=== PATIENT | male | born 1970 | race Caucasian/White ===

== ENCOUNTER 2016-12-09 18:39 | Emergency (ER) | payer BC, OTHER ==
[~2016-12-09] VITALS: Ht 180.3 cm; Wt 77.1 kg
[~2016-12-09 18:39] MED LIST: ALB.5NB20; ALBU17AE3 INH; ALBU8.5H2 IH; ALBU8.5H4 IH; AZIT-21 PO; AZIT250T PO; BUSP10TA95 PO; CEFU250T PO; CHLO10CA6 PO; CIPR500S2 PO; CLN.1T PO; ESCI10TA PO; FNT100TD; FNT100TD TD; HYDR-2890 PO; HYDR-3720 PO; KCL20TCR PO; MTH10T PO; OMEP20TA7 PO; OMEP40CA36 PO; ONDAN4ODT PO; PNT40TEC PO; PRD20T PO; PRED10TA PO; PRM25T PO; RT-ALBUINH IH; TRAM-42 PO; TRAM50TA2 PO
[2016-12-09 19:12] LABS: BASOPHILS % (AUTO) 1 % (0-10); EOSINOPHILS # (AUTO) 0.3 10^3/uL (0.0-0.3); EOSINOPHILS % (AUTO) 5 % (0-10); LYMPHOCYTES # (AUTO) 2.4 X 10^3 (1.0-4.0); LYMPHOCYTES % (AUTO) 43 % (12-44); MEAN CORPUSCULAR HEMOGLOBIN 29 PG (25-34); MEAN CORPUSCULAR HGB CONC 35 G/DL (32-36); MEAN CORPUSCULAR VOLUME 85 FL (80-99); MEAN PLATELET VOLUME 9.7 FL (7.4-10.4); MONOCYTES # (AUTO) 0.5 X 10^3 (0.0-1.0); MONOCYTES % (AUTO) 8 % (0-12); NEUTROPHILS # (AUTO) 2.4 X 10^3 (1.8-7.8); NEUTROPHILS % (AUTO) 43 % (42-75); PLATELET COUNT 215 10^3/uL (130-400); RED BLOOD COUNT 4.48 10^6/uL (4.35-5.85); RED CELL DISTRIBUTION WIDTH 13.1 % (10.0-14.5); WHITE BLOOD COUNT 5.5 10^3/uL (4.3-11.0)
--- NOTE | 2016-12-09 19:17 | ED General ---
General Chief Complaint: Cardiac/General Problems Stated Complaint: HIGH BP Nursing Triage Note: c/o left ankle swelling, high blood pressure Nursing Sepsis Screen: No Definite Risk Source of Information: Patient, Spouse Exam Limitations: No Limitations History of Present Illness Time Seen by Provider: 18:55 Initial Comments 46-year-old male patient presents to the emergency department complains of left distal leg/ankle swelling. Also reports elevated blood pressure at home. States he is at his mothers house, and mother made him concerned about possible blood clot. Patient was weed eating and using a chainsaw all day yesterday. Denies drinking much water yesterday. Today he noticed increased swelling, redness, and warmth to the distal left lower extremity. Denies shortness of air , chest pain, dizziness. Yesterday did have a mild tingling to the left hand in the evening. This is resolved completely. Denies headache, slurred speech, changes in vision, facial drooping, one-sided weakness. Denies history of blood clots. Denies claudication or calf pain. Location Injury Occurred: denies known injury Timing/Duration: 12 Hours, Constant Allergies and Home Medications Allergies Coded Allergies: No Known Drug Allergies (Unverified , 09/21/15) Home Medications Albuterol Sulfate 8.5 Gm Hfa.aer.ad, 1-2 PUFF IH Q4H PRN for SHORTNESS OF BREATH , (Reported) Buspirone HCl 10 Mg Tablet, 10 MG PO BID, (Reported) Escitalopram Oxalate Unknown Strength Tablet, 10 MG PO DAILY, (Reported) Omeprazole 40 Mg Capsule.dr, 40 MG PO BID, (Reported) Sulfamethoxazole/Trimethoprim 1 Each Tablet, 1 EACH PO BID, #20 Ref 0 Prescribed by: MANJIT FERRARI on 12/09/162103 Constitutional: No chills, No diaphoresis, No dizziness, No fever, No malaise Respiratory: No cough, No dyspnea on exertion, No orthopnea, No short of breath Cardiovascular: see HPI, No chest pain, edema, No syncope Gastrointestinal: no symptoms reported Genitourinary: no symptoms reported Musculoskeletal: see HPI, No joint pain, No muscle pain, No muscle stiffness, No muscle cramps, other (LLE swelling) Skin: see HPI Psychiatric/Neurological: No Symptoms Reported All Other Systems Reviewed Negative Unless Noted: Yes (Negative excepted noted.) Past Nylycpj-Dsosaq-Qcfald Hx Patient Social History Alcohol Use: Denies Use Recreational Drug Use: No Smoking Status: Never a Smoker 2nd Hand Smoke Exposure: No Recent Foreign Travel: No Contact w/Someone Who Travel: No Recent Infectious Disease Expo: No Recent Hopitalizations: No Immunizations Up To Date Tetanus Booster (TDap): Unknown Date of Influenza Vaccine: Apr 17, 2012 Seasonal Allergies Seasonal Allergies: No Surgeries HX Surgeries: No Respiratory Hx Respiratory Disorders: Yes (ASTHMA) Respiratory Disorders: Asthma Cardiovascular Hx Cardiac Disorders: No Neurological Hx Neurological Disorders: No Reproductive System Hx Reproductive Disorders: No Genitourinary Hx Genitourinary Disorders: No Gastrointestinal Hx Gastrointestinal Disorders: No Musculoskeletal Hx Musculoskeletal Disorders: Yes (DJD) Endocrine Hx Endocrine Disorders: No HEENT HX ENT Disorders: No Cancer Hx Cancer: No Psychosocial Hx Psychiatric Problems: No Behavioral Health Disorders: Anxiety, Depression Integumentary HX Skin/Integumentary Disorder: No Blood Transfusions Hx Blood Disorders: No Adverse Reaction to a Blood Tr: No Reviewed Nursing Assessment Reviewed/Agree w Nursing PMH: Yes Family Medical History Significant Family History: No Pertinent Family Hx Physical Exam Vital Signs Vital Sign - Last 12Hours 12/09/16 18:50 Temp 97.7 Pulse 72 Resp 18 B/P (MAP) 153/92 Pulse Ox 99 O2 Delivery Room Air Capillary Refill : Less Than 3 Seconds General Appearance: No Apparent Distress, WD/WN HEENT: PERRL/EOMI, Pharynx Normal Neck: Normal Inspection, Supple Respiratory: Lungs Clear, Normal Breath Sounds, No Respiratory Distress Cardiovascular: Regular Rate, Rhythm, No Murmur, Normal Peripheral Pulses Gastrointestinal: Normal Bowel Sounds, No Organomegaly, Non Tender, Soft, No Distended Extremity: Normal Capillary Refill, Normal Range of Motion, Non Tender, No Calf Tenderness, Pedal Edema (trace RLE pedal edema. 2+ pedal edema to the level of the tibial tuberosity of the LLE. mild warmth and erythema noted of the left lower distal leg. Negative tenderness noted. Several small abrasions noted on the left distal lower extremity.) Neurologic/Psychiatric: Alert, Oriented x3, No Motor/Sensory Deficits, Normal Mood/Affect, traffic control technician II-XII Norm as Tested Skin: Normal Color, Warm/Dry, Erythema (mild warmth and erythema noted of the lower left distal leg. Negative tenderness noted. Several small abrasions noted on the left distal lower extremity.) Progress/Results/Core Measures Results/Orders Lab Results Laboratory Tests Test 12/09/16 19:05 Range/Units White Blood Count 5.5 4.3-11.0 10^3/uL Red Blood Count 4.48 4.35-5.85 10^6/uL Hemoglobin 13.1 L 13.3-17.7 G/DL Hematocrit 38 L 40-54 % Mean Corpuscular Volume 85 80-99 FL Mean Corpuscular Hemoglobin 29 25-34 PG Mean Corpuscular Hemoglobin Concent 35 32-36 G/DL Red Cell Distribution Width 13.1 10.0-14.5 % Platelet Count 215 130-400 10^3/uL Mean Platelet Volume 9.7 7.4-10.4 FL Neutrophils (%) (Auto) 43 42-75 % Lymphocytes (%) (Auto) 43 12-44 % Monocytes (%) (Auto) 8 0-12 % Eosinophils (%) (Auto) 5 0-10 % Basophils (%) (Auto) 1 0-10 % Neutrophils # (Auto) 2.4 1.8-7.8 X 10^3 Lymphocytes # (Auto) 2.4 1.0-4.0 X 10^3 Monocytes # (Auto) 0.5 0.0-1.0 X 10^3 Eosinophils # (Auto) 0.3 0.0-0.3 10^3/uL Basophils # (Auto) 0.0 0.0-0.1 10^3/uL Erythrocyte Sedimentation Rate 9 0-15 MM/HR Prothrombin Time 13.2 12.2-14.7 SEC INR Comment 1.0 0.8-1.4 Activated Partial Thromboplast Time 29 24-35 SEC D-Dimer 0.28 0.00-0.49 UG/ML Sodium Level 140 135-145 MMOL/L Potassium Level 3.6 3.6-5.0 MMOL/L Chloride Level 106 98-107 MMOL/L Carbon Dioxide Level 25 21-32 MMOL/L Anion Gap 9 5-14 MMOL/L Blood Urea Nitrogen 10 7-18 MG/DL Creatinine 0.84 0.60-1.30 MG/DL Estimat Glomerular Filtration Rate > 60 BUN/Creatinine Ratio 12 0-20 Glucose Level 97 70-105 MG/DL Calcium Level 9.0 8.5-10.1 MG/DL Total Bilirubin 0.5 0.1-1.0 MG/DL Aspartate Amino Transf (AST/SGOT) 31 5-34 U/L Alanine Aminotransferase (ALT/SGPT) 39 0-55 U/L Alkaline Phosphatase 65 40-136 U/L Total Creatine Kinase 331 H 30-200 U/L Troponin I < 0.30 <0.30 NG/ML C-Reactive Protein High Sensitivity 0.55 H 0.00-0.50 MG/DL B-Type Natriuretic Peptide 58.3 <100.0 PG/ML Total Protein 6.8 6.4-8.2 GM/DL Albumin 4.0 3.2-4.5 GM/DL TSH [place] [facility] 1.60 0.35-4.94 UIU/ML My Orders Orders - MANJIT FERRARI BNP (12/09/16 18:57) Cbc With Automated Diff (12/09/16 18:57) Comprehensive Metabolic Panel (12/09/16 18:57) Creatine Kinase (12/09/16 18:57) Hs C Reactive Protein (12/09/16 18:57) Fibrin Degradation Products (12/09/16 18:57) Protime With Inr (12/09/16 18:57) Partial Thromboplastin Time (12/09/16 18:57) Thyroid Analyzer (12/09/16 18:57) Troponin I (12/09/16 18:57) Erythrocyte Sedimentation Rate (12/09/16 18:57) Saline Lock/Iv-Start (12/09/16 18:57) Ekg Tracing (12/09/16 18:57) Us Venous Lower Ext Lt (12/09/16 18:57) Ns Iv 1000 Ml (Sodium Chloride 0.9%) (12/09/16 19:51) Rx-Trimeth/Sulfameth Ds Tab (Rx-Bactrim/ (12/09/16 21:03) Medications Given in ED Current Medications Medications Dose Ordered Sig/Dimitry Route Start Time Stop Time Status Last Admin Dose Admin Sodium Chloride 1,000 ml @ 0 mls/hr Q0M ONCE IV 12/09/16 19:51 12/09/16 19:52 DC 12/09/16 20:16 0 MLS/HR Vital Signs/I&O Vital Sign - Last 12Hours 12/09/16 12/09/16 18:50 21:09 Temp 97.7 Pulse 72 54 Resp 18 18 B/P (MAP) 153/92 Pulse Ox 99 98 O2 Delivery Room Air Blood Pressure Mean: 112 ECG Initial ECG Impression Date: Dec 09, 2016 Initial ECG Impression Time: 19:15 Initial ECG Rate: 68 Initial ECG Rhythm: Normal Sinus Initial ECG Comparisson: Unchanged Comment Sinus rhythm. Similar to previous ECG. No STEMI or arrhythmia noted. ECG reviewed with Dr. Saldaña. Diagnostic Imaging Diagonstic Imaging: Ultrasound Plain Films/CT/US/NM/MRI: leg Comments FINDINGS: The visualized deep and superficial venous system is patent. There is no mass or DVT. IMPRESSION: Negative left lower extremity venous Doppler. Dictated on workstation # [id number] Reviewed: Reviewed by Me (radiology report reviewed by me) Departure Communication Progress Notes Laboratory and diagnostic findings discussed with the patient. Plan for discharge to home with Bactrim for mild erythema and warmth of the left lower extremity. Impression Impression: Primary Impression: Left leg swelling Additional Impression: Abrasion of left lower extremity Qualified Codes: S80.812A - Abrasion, left lower leg, initial encounter Disposition: HOME, SELF-CARE Condition: Improved Departure-Patient Inst. Decision time for Depature: 20:50 Referrals: NO,LOCAL PHYSICIAN (PCP/Family) Primary Care Physician Patient Instructions: Cellulitis (Skin Infection), Adult (DC), Dependent Edema (DC), Swelling Add. Discharge Instructions: All discharge instructions reviewed with patient and/or family. Voiced understanding. Medications as instructed. Elevate the left lower extremity above the level of heart on pillows as much as possible for the next 2-3 days. Tylenol Extra Strength [id number] as directed for pain. Ibuprofen 800 mg by mouth every 8 hours as needed for pain. Ice packs or warm packs as needed for symptoms. Follow-up with a family practitioner Monday or Monday for recheck, call first thing Monday morning for appointment time. Return to the emergency department for worsened pain, swelling, redness, fever, drainage, headache, dizziness, changes in vision, slurred speech, shortness of air, chest pain, numbness, weakness, discoloration, or any other concerns. 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
[2016-12-09 19:22] LABS: PROTHROMBIN TIME PATIENT 13.2 SEC (12.2-14.7)
[2016-12-09 19:30] LABS: ERYTHROCYTE SEDIMENTATION RATE 9 MM/HR (0-15)
[2016-12-09 19:33] LABS: ALANINE AMINOTRANSFERASE 39 U/L (0-55); ANION GAP 9 MMOL/L (5-14); ASPARTATE AMINO TRANSFERASE 31 U/L (5-34); BILIRUBIN,TOTAL 0.5 MG/DL (0.1-1.0); BLOOD UREA NITROGEN 10 MG/DL (7-18); BUN/CREATININE RATIO 12 (0-20); CARBON DIOXIDE 25 MMOL/L (21-32); CHLORIDE 106 MMOL/L (98-107); CREATINE KINASE 331 U/L (30-200); CREATININE SERUM 0.84 MG/DL (0.60-1.30); GFR ESTIMATED > 60; GLUCOSE 97 MG/DL (70-105); HEMOLYSIS 8 (-100-29); ICTERUS 0.4 (-100-1.9); LIPEMIA 3 (-100-49); POTASSIUM 3.6 MMOL/L (3.6-5.0); SODIUM 140 MMOL/L (135-145); TOTAL PROTEIN 6.8 GM/DL (6.4-8.2); hs C REACTIVE PROTEIN 0.55 MG/DL (0.00-0.50)
[2016-12-09] MEDS ORDERED: NS IV 1000 ML 1,000 ML IV ONE (19:51)
[2016-12-09 19:52] LABS: TROPONIN I < 0.30 NG/ML (<0.30)
--- NOTE | 2016-12-09 20:39 | Diagnostic Imaging Report ---
PROCEDURE: US left lower extremity venous. TECHNIQUE: Multiple real-time grayscale images were obtained over the left lower extremity in various projections. Additional duplex Doppler and color Doppler images were also obtained. INDICATION: Left lower extremity swelling and pain. COMPARISON: None. FINDINGS: The visualized deep and superficial venous system is patent. There is no mass or DVT. IMPRESSION: Negative left lower extremity venous Doppler. Dictated by: Dictated on workstation # [id number]
[2016-12-09] MEDS ORDERED: RX-TRIMETH/SULFA. 160-800 MG (BACTRIM DS) TAB PPK#2 PO STA (21:03)
[2016-12-09] MEDS ORDERED: SULF1TAB35 PO (21:04)
[2016-12-09 21:09] VITALS: BP 123/81
--- OUTSIDE RECORDS SUMMARY | 2016-12-12 15:34 | XMS REPORT | Continuity of Care Document ---
Author Author [facility] Address Unknown Phone Unavailable Allergies Active Description Code Type Severity Reaction Onset Reported/Identified Relationship to Patient Clinical Status Yes NKANo Known Allergies NKA Miscellaneous Allergy Mild N/A 01/16/2009 Yes codeine [id number] Drug Allergy Mild N/A 04/11/2009 Yes No Known Drug Allergies [id number] Drug Allergy Unknown N/ A 09/21/2015 Medications Problems Date Dx Coded Attending Type Code Diagnosis Diagnosed By 10/13/2009 Ot 388.70 10/13/2009 Ot 719.07 01/13/2010 ROULA CHAMORRO MD 461.0 ACUTE MAXILLARY SINUSITIS 01/13/2010 ROULA CHAMORRO MD 564.00 CONSTIPATION, UNSPECIFIED 01/13/2010 ROULA CHAMORRO MD 719.44 PAIN IN JOINT, HAND 01/13/2010 ROULA CHAMORRO MD 786.2 COUGH 03/23/2010 Ot 304.01 03/23/2010 Ot 493.90 04/01/2010 ROULA CHAMORRO MD 304.00 OPIOID TYPE DEPENDENCE UNSPECIFIED USE 04/01/2010 ROULA CHAMORRO MD 716.90 ARTHRITIS/ ARTHROPATHY, UNSPECIFIED 06/01/2010 ROULA CHAMORRO MD 009.1 GASTROENTERITIS INFECT 06/25/2010 ROULA CHAMORRO MD 311 DEPRESSIVE DISORDER NOT ELSEWHERE CLASSIFIED 09/07/2010 ROULA CHAMORRO MD 719.46 PAIN IN JOINT INVOLVING LOWER LEG 09/07/2010 ROULA CHAMORRO MD 729.2 NEURALGIA NEURITIS AND RADICULITIS UNSPECIFIED 04/16/2011 Ot 305.90 09/15/2012 ROULA CHAMORRO MD 790.5 OTHER NONSPECIFIC ABNORMAL SERUM ENZYME LEVELS 09/15/2012 Ot 305.90 09/15/2012 Ot 558.9 09/15/2012 Ot 577.9 09/15/2012 Ot 780.93 07/10/2014 JOSE SWANSON AUTO DETAILER Ot 490 07/10/2014 JOSE SWANSON AUTO DETAILER Ot 786.2 08/03/2014 ADAN MCFARLANE, NAHID Mcwilliams Ot 276.52 08/03/2014 ADAN MCFARLANE, NAHID T Ot 493.92 08/03/2014 ADAN MCFARLANE, NAHID T Ot 799.02 08/03/2014 ADAN MCFARLANE, NAHID T Ot 965.09 08/03/2014 ADAN MCFARLANE, NAHID T Ot E849.0 08/03/2014 ADAN MCFARLANE, NAHID T Ot E850.2 09/21/2015 Ot K21.9 GASTRO-ESOPHAGEAL REFLUX DISEASE WITHOUT 09/21/2015 Ot Z01.818 ENCOUNTER FOR OTHER PREPROCEDURAL EXAMIN 09/22/2015 Ot K21.9 09/22/2015 Ot Z01.818 09/23/2015 Ot M25.552 09/23/2015 Ot M54.5 09/23/2015 Ot M25.552 09/23/2015 Ot M54.5 09/23/2015 Ot M25.552 09/23/2015 Ot M54.5 09/25/2015 CEM MCFARLANE, GINO Ot Z01.818 ENCOUNTER FOR OTHER PREPROCEDURAL EXAMIN 09/27/2015 Ot M25.552 09/27/2015 Ot M54.5 09/28/2015 GINO PRIEST MD Ot Z01.818 10/03/2015 Ot K21.9 GASTRO-ESOPHAGEAL REFLUX DISEASE WITHOUT 10/03/2015 Ot Z01.818 ENCOUNTER FOR OTHER PREPROCEDURAL EXAMIN 10/07/2015 Ot M25.552 PAIN IN LEFT HIP 10/07/2015 Ot M54.5 LOW BACK PAIN 06/30/2016 Ot M25.552 PAIN IN LEFT HIP 06/30/2016 Ot M54.5 LOW BACK PAIN 12/09/2016 Ot M25.552 PAIN IN LEFT HIP 12/09/2016 Ot M54.5 LOW BACK PAIN Procedures Results Test Result Range Complete blood count (CBC) with automated white blood cell (WBC) differential - 12/09/16 19:05 Blood leukocytes automated count (number/volume) 5.5 10*3/ uL 4.3-11.0 Blood erythrocytes automated count (number/volume) 4.48 10*6 /uL 4.35-5.85 Venous blood hemoglobin measurement (mass/volume) 13.1 g/dL 13.3-17.7 Blood hematocrit (volume fraction) 38 % 40-54 Automated erythrocyte mean corpuscular volume 85 [foz_us] 80-99 Automated erythrocyte mean corpuscular hemoglobin (mass per erythrocyte) 29 pg 25-34 Automated erythrocyte mean corpuscular hemoglobin concentration measurement ( mass/volume) 35 g/dL 32-36 Automated erythrocyte distribution width ratio 13.1 % 10.0-14.5 Automated blood platelet count (count/volume) 215 10*3/uL 130-400 Automated blood platelet mean volume measurement 9.7 [foz_us ] 7.4-10.4 Automated blood neutrophils/100 leukocytes 43 % 42-75 Automated blood lymphocytes/100 leukocytes 43 % 12-44 Blood monocytes/100 leukocytes 8 % 0-12 Automated blood eosinophils/100 leukocytes 5 % 0-10 Automated blood basophils/100 leukocytes 1 % 0-10 Blood neutrophils automated count (number/volume) 2.4 10*3 1.8-7.8 Blood lymphocytes automated count (number/volume) 2.4 10*3 1.0-4.0 Blood monocytes automated count (number/volume) 0.5 10*3 0.0-1.0 Automated eosinophil count 0.3 10*3/uL 0.0-0.3 Automated blood basophil count (count/volume) 0.0 10*3/uL 0.0-0.1 Erythrocyte sedimentation rate by westergren method - 12/09/16 19:05 Erythrocyte sedimentation rate by westergren method 9 mm 0-15 PT panel in platelet poor plasma by coagulation assay - 12/09/16 19:05 Prothrombin time (PT) in platelet poor plasma by coagulation assay 13.2 s 12.2-14.7 INR in platelet poor plasma or blood by coagulation assay 1.0 0.8-1.4 Activated partial thromboplastin time (aPTT) in platelet poor plasma bycoagulation assay - 12/09/16 19:05 Activated partial thromboplastin time (aPTT) in platelet poor plasma bycoagulation assay 29 s 24-35 Fibrin D-dimer FEU measurement in platelet poor plasma (mass/volume) - 19:05 Fibrin D-dimer FEU measurement in platelet poor plasma (mass/volume) 0.28 ug/mL 0.00-0.49 Comprehensive metabolic panel - 12/09/16 19:05 Serum or plasma sodium measurement (moles/volume) 140 mmol/ L 135-145 Serum or plasma potassium measurement (moles/volume) 3.6 mmol/L 3.6-5.0 Serum or plasma chloride measurement (moles/volume) 106 mmol /L 98-107 Carbon dioxide 25 mmol/L 21-32 Serum or plasma anion gap determination (moles/volume) 9 mmol/L 5-14 Serum or plasma urea nitrogen measurement (mass/volume) 10 mg/dL 7-18 Serum or plasma creatinine measurement (mass/volume) 0.84 mg /dL 0.60-1.30 Serum or plasma urea nitrogen/creatinine mass ratio 12 0-20 Serum or plasma creatinine measurement with calculation of estimated glomerular filtration rate > NRG Serum or plasma glucose measurement (mass/volume) 97 mg/dL 70-105 Serum or plasma calcium measurement (mass/volume) 9.0 mg/dL 8.5-10.1 Serum or plasma total bilirubin measurement (mass/volume) 0.5 mg/dL 0.1-1.0 Serum or plasma alkaline phosphatase measurement (enzymatic activity/volume) 65 U/L 40-136 Serum or plasma aspartate aminotransferase measurement (enzymatic activity/ volume) 31 U/L 5-34 Serum or plasma alanine aminotransferase measurement (enzymatic activity/volume ) 39 U/L 0-55 Serum or plasma protein measurement (mass/volume) 6.8 g/dL 6.4-8.2 Serum or plasma albumin measurement (mass/volume) 4.0 g/dL 3.2-4.5 Serum or plasma creatine kinase measurement (enzymatic activity/volume) - 12/09 19:05 Serum or plasma creatine kinase measurement (enzymatic activity/volume) 331 U/L 30-200 Serum or plasma troponin i.cardiac measurement (mass/volume) - 12/09/16 19:05 Serum or plasma troponin i.cardiac measurement (mass/volume) < ng/mL <0.30 Serum or plasma lithium measurement (moles/volume) - 12/09/16 19:05 BNP level 58.3 pg/mL <100.0 Serum or plasma thyrotropin measurement by detection limit <=0.05 miu/l (units/ volume) - 12/09/16 19:05 Serum or plasma thyrotropin measurement by detection limit <=0.05 miu/l (units/ volume) 1.60 u[iU]/mL 0.35-4.94 Serum or plasma C reactive protein measurement (mass/volume) - 12/09/16 19:05 Serum or plasma C reactive protein measurement (mass/volume) 0.55 mg/dL 0.00-0.50 Encounters ACCT No. Visit Date/Time Discharge Status Pt. Type Provider Facility Loc./Unit Complaint [id number] 09/10/2012 09:06:00 09/10/2012 23: 59:59 CLS Outpatient ASHTYN MCFARLANE, ROULA Coker
--- OUTSIDE RECORDS SUMMARY | 2016-12-12 15:34 | XMS REPORT ---
Author Author BRAYDON PEÑALOZA Organization [employer] Address Unknown Phone Unavailable Care Team Providers Care Tax Representative Name Role Phone BRAYDON PEÑALOZA CP Unavailable Allergies, Adverse Reactions, Alerts Substance Reaction Event Type N.K.D.A. Info Not Available Non Drug Allergy Problems Problem Type Condition ICD-9 Code Onset Dates Condition Status Assessment Abdominal pain 789.00 Active Assessment Difficulty urinating 788.99 Active Problem Other nonspecific abnormal serum enzyme levels 790.5 Active Assessment Nausea 787.[address] scan, chest 793.2 Active Medications Medication Code System Code Instructions Start Date End [place] D[place] [address]-19 50 MG Orally every 6 hrs 1 tablet as needed Prilosec OTC NDC 30022-05619 20 MG Orally twice a day 1 tablet Procedures Procedure Coding System Code Date Office Visit, Est Pt., Level 4 CPT-4 18693 Mar 12, 2015 URINALYSIS, AUTO, W/O SCOPE CPT-4 47048 Mar 12, 2015 Vital Signs Date/Time: Mar 12, 2015 Temperature 98.4 F Weight 201.8 lbs Height 71 in BMI 28.14 Index Blood Pressure Diastolic 78 mmHg Blood Pressure Systolic 126 mmHg Cardiac Monitoring Heart Rate 92 bpm Results Name Result Date Reference Range Unit Abnormality Flag UA LONG DIP (IN HOUSE) Summary Purpose [employer] Submission
== END 2016-12-09 21:08 | disposition home or self-care (01) ==
LOC: EDUNIT# 18:39 → ER 18:40
DX: S80.11XA Contusion of right lower leg, initial encounter (principal); J45.909 Unspecified asthma, uncomplicated; F41.8 Other specified anxiety disorders; Z87.39 Personal history of other diseases of the musculoskeletal system and connective tissue
CPT/HCPCS: 36415; 80053; 82550; 83880; 84443; 84484; 85025; 85379; 85610; 85652; 85730; 86141; 93005